=== PATIENT | female | born 1980 | race American Indian/Alaskan Native ===

== ENCOUNTER 2022-04-21 18:01 | Emergency (ER) | payer SELFPAY ==
[2022-04-21 18:38] VITALS: BP 150/97
[2022-04-21 19:23] LABS: Bilirubin,Urine NEG (Negative); Blood,Urine SM (Negative); Color,Urine Yellow (Yellow); Urobilinogen,Urine < 2 mg/dL (<2.0)
[2022-04-21 19:25] LABS: Hyaline Casts,Urine 3 /LPF; Mucus,Urine FEW /HPF
[2022-04-21 19:37] LABS: Alanine Aminotransferase 34 units/L (7-56); Albumin 4.8 g/dL (3.9-5); BUN/Creatinine Ratio 19; Blood Urea Nitrogen 15 mg/dL (7-17); Hemolysis Index 8
[2022-04-21 19:42] LABS: Protein,Urine >500 mg/dL (Negative)
[2022-04-21 19:47] LABS: Basophils # (Auto) 0.1 K/mm3 (0.0-0.1); Basophils % (Auto) 0.4 % (0.0-1.8); Hematocrit 42.3 % (30.3-42.9); Hemoglobin 13.9 gm/dl (10.1-14.3); Lymphocytes # (Auto) 1.7 K/mm3 (1.2-5.4); Lymphocytes % (Auto) 15.1 % (13.4-35.0); Mean Corpuscular HGB Conc 33 % (30-34); Mean Corpuscular Volume 94 fl (79-97); Monocytes # (Auto) 0.4 K/mm3 (0.0-0.8); Monocytes % (Auto) 3.3 % (0.0-7.3); Platelet Count 281 K/mm3 (140-440); Red Cell Distribution Width 13.2 % (13.2-15.2)
== END 2022-04-22 18:39 | disposition left against medical advice (07) ==
LOC: ED 18:01
DX: R10.9 Unspecified abdominal pain (principal); Z53.21 Procedure and treatment not carried out due to patient leaving prior to being seen by health care provider
CPT/HCPCS: 36415; 80053; 81001; 82962; 85025